=== PATIENT | female | born 1960 | race Caucasian/White ===

== ENCOUNTER 2017-12-08 12:06 | Observation (INO) | payer OTHER ==
[~2017-12-08 12:06] MED LIST: ACETAMINOPHEN 1000 MG/100 ML IVPB; CEFAZOLIN 1 GM INJ; CEFAZOLIN 2 GM/50 ML (PMX) 50 ML IVPB; DEXAMETHASONE 4 MG/ML 1 ML INJ; LACTATED RINGER'S 1,000 ML (ENTER RATE) IV*; LIDOCAINE 2% (SDV) 5 ML INJ; PROPOFOL 200 MG INJ; ROCURONIUM 50 MG INJ; SUCCINYLCHOLINE CHLORIDE 100 MG/5 ML SYG IV
[2017-12-08] MEDS ORDERED: GELATIN SIZE 100 SPONGE (14:46)
[2017-12-08] MEDS ORDERED: MIDAZOLAM 1 MG/ML 2 ML INJ (15:54)
[2017-12-08] MEDS ORDERED: FENTAnyl 50 MCG/ML VIAL (15:54)
[2017-12-08] MEDS ORDERED: METOCLOPRAMIDE 10 MG INJ (15:57)
[2017-12-08] MEDS ORDERED: ONDANSETRON 4 MG INJ (15:57)
[2017-12-08] MEDS ORDERED: PHENYLephrine (100 MCG/ML) 5ML SYG (16:43)
[2017-12-08] MEDS ORDERED: PHENYLephrine 10 MG INJ (17:06)
[2017-12-08] MEDS ORDERED: CA CHLORIDE 10% 10 ML SYRINGE (17:24)
[2017-12-08] MEDS: THROMBIN 5000 UNIT VIAL (17:24)
[2017-12-08] MEDS: BUPIVACAINE 0.25%/EPI (SDV) 30 ML INJ (17:24)
[2017-12-08] MEDS: POLYMYXIN/BACITRACIN 1L IRRIG (17:25)
[2017-12-08] MEDS ORDERED: METOCLOPRAMIDE 10 MG INJ IV (19:30)
[2017-12-08] MEDS ORDERED: LABETALOL HCL 20MG INJ IV (19:30)
[2017-12-08] MEDS ORDERED: ONDANSETRON 4 MG INJ IV ×2 (19:30→20:00)
[2017-12-08] MEDS ORDERED: HYDROmorphONE (0.2 MG/ML) 10ML SYG IV ×2 (19:30)
[2017-12-08] MEDS ORDERED: hydrALAzine 20 MG INJ IV (19:30)
[2017-12-08] MEDS ORDERED: DIPHENHYDRAMINE 50 MG INJ IV (19:30)
[2017-12-08] MEDS ORDERED: FENTAnyl 50 MCG/ML VIAL IV ×2 (19:30)
[2017-12-08] MEDS ORDERED: NEOSTIGMINE 3 MG/3 ML SYRINGE (19:43)
[2017-12-08] MEDS ORDERED: GLYCOPYRROLATE 0.4 MG INJ (19:43)
[2017-12-08] MEDS: BETAMET NA PHOS/AC(6 MG/ML) 5ML INJ (19:45)
[2017-12-08] MEDS ORDERED: NALOXONE (0.4 MG/ML) INJ IV (20:00)
[2017-12-08] MEDS ORDERED: NACL 0.9% 3 ML SYG IV (20:00)
[2017-12-08] MEDS ORDERED: PROCHLORPERAZINE 10 MG TAB PO (20:00)
[2017-12-08] MEDS ORDERED: HYDROCODONE/APAP (5/325) TAB PO (20:00)
[2017-12-08] MEDS ORDERED: ACETAMINOPHEN 325 MG TAB PO (20:00)
[2017-12-08] MEDS: HYDROmorphONE (0.2 MG/ML) 10ML SYG IV (20:05)
[2017-12-08] MEDS ORDERED: GLUCAGON 1 MG INJ IM (22:00)
[2017-12-08] MEDS ORDERED: GLUCOSE GEL 15 GRAM TUBE PO ×2 (22:00)
[2017-12-08] MEDS: SOD CHLORIDE 0.9% 1,000 ML IV (22:00)
[2017-12-08] MEDS ORDERED: GLUCOSE GEL 15 GRAM TUBE BUCCAL (22:00)
[2017-12-08] MEDS ORDERED: DEXTROSE 50% 50 ML SYRINGE IV ×2 (22:00)
[2017-12-08] MEDS: HYDROmorphONE 1 MG/ML SYG IV (23:34)
[2017-12-08] MEDS: CEFAZOLIN 1 GM/50 ML (PMX) 50 ML IVPB (23:42)
[2017-12-09] MEDS: HYDROmorphONE 1 MG/ML SYG IV ×2 (03:07→07:47)
[2017-12-09] MEDS: CEFAZOLIN 1 GM/50 ML (PMX) 50 ML IVPB ×3 (05:33→17:58)
[2017-12-09 05:35] LABS: HEMATOCRIT 36.4 % (37.0-47.0); HEMOGLOBIN 12.1 g/dl (12.0-16.0)
[2017-12-09 06:11] LABS: ANION GAP 17 (8-16); BLOOD UREA NITROGEN 11 mg/dl (7-20); CALCIUM 9.2 mg/dl (8.4-10.2); CARBON DIOXIDE 25 mmol/L (21-31); CHLORIDE 106 mmol/L (97-110); CREATININE 0.74 mg/dl (0.44-1.00); GLUCOSE 199 mg/dl (70-220); POTASSIUM 4.2 mmol/L (3.5-5.1); SODIUM 144 mmol/L (135-144)
[2017-12-09] MEDS: LEVOTHYROXINE 125 MCG TAB PO (06:27)
[2017-12-09] MEDS: PANTOPRAZOLE (EC) 40 MG TAB PO (06:28)
[2017-12-09] MEDS: SOD CHLORIDE 0.9% 1,000 ML IV ×2 (08:00→21:56)
[2017-12-09] MEDS: metFORMIN 500 MG TAB PO ×2 (08:40→17:47)
[2017-12-09] MEDS: LOSARTAN 50 MG TAB PO (08:40)
[2017-12-09] MEDS: INSULIN ASPART [NOVOLOG] 3 ML PEN SC ×4 (08:44→20:47)
[2017-12-09] MEDS: HYDROCODONE/APAP (5/325) TAB PO ×4 (09:46→21:56)
[2017-12-09] MEDS: ATORVASTATIN 10 MG TAB PO (20:41)
[2017-12-10] MEDS: PANTOPRAZOLE (EC) 40 MG TAB PO (05:08)
[2017-12-10] MEDS: LEVOTHYROXINE 125 MCG TAB PO (05:08)
[2017-12-10] MEDS: HYDROCODONE/APAP (5/325) TAB PO ×3 (05:09→13:40)
[2017-12-10] MEDS: LOSARTAN 50 MG TAB PO (08:36)
[2017-12-10] MEDS: metFORMIN 500 MG TAB PO ×2 (08:36→17:59)
[2017-12-10] MEDS: INSULIN ASPART [NOVOLOG] 3 ML PEN SC ×3 (08:37→17:55)
[2017-12-10] MEDS: SOD CHLORIDE 0.9% 1,000 ML IV (10:40)
== END 2017-12-10 18:56 | disposition home or self-care (01) ==
LOC: SDS 12:06 → MS1 21:00
PROVIDERS: Orthopaedic Surgery
DX: M48.062 Spinal stenosis, lumbar region with neurogenic claudication (principal); M48.07 Spinal stenosis, lumbosacral region; M54.16 Radiculopathy, lumbar region; M54.17 Radiculopathy, lumbosacral region; I10 Essential (primary) hypertension; G47.30 Sleep apnea, unspecified; E11.9 Type 2 diabetes mellitus without complications; E78.5 Hyperlipidemia, unspecified; E03.9 Hypothyroidism, unspecified; K21.9 Gastro-esophageal reflux disease without esophagitis; Z79.84 Long term (current) use of oral hypoglycemic drugs; Z90.49 Acquired absence of other specified parts of digestive tract
CPT/HCPCS: 63047; 72100; 80048; 82962; 85014; 85018; 86850; 86900; 86901; 97116; 97162; 97530

== ENCOUNTER 2018-12-11 11:23 | Emergency (ER) | payer OTHER ==
[2018-12-11] MEDS: IBUPROFEN 800 MG TAB PO (12:31)
== END 2018-12-11 13:58 | disposition home or self-care (01) ==
LOC: E/R 11:23
DX: J20.9 Acute bronchitis, unspecified (principal); E11.9 Type 2 diabetes mellitus without complications; I10 Essential (primary) hypertension; Z79.84 Long term (current) use of oral hypoglycemic drugs
CPT/HCPCS: 71046; 99283